=== PATIENT | male | born 1990 | race Caucasian/White ===

== ENCOUNTER 2017-09-13 12:10 | Emergency (ER) | payer MEDICAID ==
--- NOTE | 2017-09-13 12:57 | EDPHY ---
HPI/HX/ROS/PE/MDM Narrative: CHIEF COMPLAINT: Shortness of breath, contsricting throat HISTORY OF PRESENT ILLNESS: The patient is a 27 y/o male complaining of shortness of breath and a constricting throat onset several weeks ago. The symptoms are worse in the morning but tend to alleviate after a hot shower or when placing his arms above his head. His symptoms are aggravated while lying flat. 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 These symptoms are not similar to prior post nasal drip or GERD episodes. Last night his symptoms aggravated and he currently feeling like his upper throat is constricting and in pain. He is able to eat and drink normally. He feels like every breath is difficult to take. Denies history of asthma, pancreatitis, liver, or kidney problems. No fever, chills, chest pain, palpitations, vomiting, diarrhea, urinary complaints, headache, lightheadedness. REVIEW OF SYSTEMS: Aside from elements discussed in the HPI, a comprehensive 10-point review of systems was reviewed and is negative. PAST MEDICAL HISTORY: Left hand fracture, GERD SOCIAL HISTORY: Lives in [place], employed at [employer], uses alcohol and marijuana, denies illicit drug use VITAL SIGNS: Reviewed by me GENERAL: Well-developed, well-nourished, and continually taking deep breaths as he feels like he has to. HEENT: Atraumatic. Eyes: No icterus, no injection. Mouth: moist mucous membranes. Faint white discharge in back of oropharynx No erythema or lesions. Neck: supple with no adenopathy. LUNGS: Right upper lobe wheezes otherwise clear to auscultation, rhonchi or rales. CARDIAC: Regular rate and rhythm, no rubs, murmurs or gallops. ABDOMEN: Soft, nontender, nondistended, bowel sounds normal. BACK: No CVA tenderness. EXTREMITIES: No trauma. No edema. Range of motion is normal throughout. NEURO: Alert and oriented, grossly nonfocal. SKIN: Warm and dry, no rash. PSYCHIATRIC: Normal mentation, no agitation. Portions of this note were transcribed by a medical field representative. I personally performed a history, physical exam, medical decision making, and confirmed accuracy of information the transcribed note. ED Course: The patient is a 27 y/o male presenting with shortness of breath and a constricting throat onset several weeks ago. He is currently continually taking deep breaths as he feels like he has to. On exam he has right upper wheezes and faint white discharge in the back of his oropharynx. He does not have cervical adenopathy. Chest x-ray, soft tissue neck x-ray, and strep screen ordered. Albuterol given. 1417: Patient has a negative strep test, chest x-ray and soft tissue cervical. 1429: Reassessed patient, he is feeling better after the Albuterol, he will receive a prescription for this. I have prescribed him Prilosec as well, his first dose will be given in the emergency department. I discussed the imaging results and referred him to an ENT for an outpatient followup. Return precautions provided; patient is comfortable with this plan. MDM: Diff dx considered included strep pharyngitis, croup, bacterial tracheitis, epiglottis, esophagitits, reactive airways disease, reflux. - Data Points Imaging Results: Soft tissue neck: Impression: Unremarkable soft tissue neck. Dictated By: Obed Jeter MD CXR: IMPRESSION: Normal chest x-ray. Dictated By: Obed Jeter MD Imaging: Discussed imaging studies w/ call center professional Radiologist, I viewed and interpreted images myself Medications Given: Discontinued Medications Albuterol (Proventil Neb) 3 ml IH EDNOW ONE Stop: 09/13/17 13:24 Last Admin: 09/13/17 13:25 Dose: 3 ml General Time Seen by Provider: 09/13/17 12:56 Initial Vital Signs: Initial Vital Signs Temperature (C) 36.5 C 09/13/17 12:16 Heart Rate 72 09/13/17 12:16 Respiratory Rate 16 09/13/17 12:16 Blood Pressure 99/66 L 09/13/17 12:16 O2 Sat (%) 97 09/13/17 12:16 O2 Delivery Mode Room Air Allergies/Adverse Reactions: No Known Allergies Allergy (Unverified 09/13/17 12:16) Home Medications: Medication Instructions Recorded Albuterol [Proventil Inhaler HFA 1 - 2 puffs IH Q4H #1 mdi 09/13/17 (*)] Loratadine [Claritin] 10 mg PO DAILY #30 tablet 09/13/17 Omeprazole 20 mg PO DAILY #30 capsule. 09/13/17 Departure - Departure Disposition: Home, Routine, Self-Care Clinical Impression: Post-nasal drip, Reactive airway disease Condition: Good Instructions: Reactive Airways Disease (ED), Postnasal Drip (DC) Additional Instructions: Take regular doses of Lois or Claritin, these should not make you drowsy and is available over the counter. Do not take a decongestant. Take Prilosec as prescribed. Use the albuterol inhaler as prescribed. Follow up with an ENT in the next week. Mainstay of therapy will be to drink plenty of fluids, control your symptoms with [id number] medications, and get plenty of rest. Return to the emergency department or seek care urgently if you're symptoms are worsening despite the above treatment, if you develop shortness of breath, if you're unable to drink fluids secondary to throat pain or other issues, if you developed, vomiting, diarrhea, or other concerns. Referrals: Evan Shaffer MD [Primary Care Provider] - As per Instructions Doretha Giraldo MD [Medical Doctor] - As per Instructions Prescriptions: Albuterol [Proventil Inhaler HFA (*)] 1 - 2 puffs IH Q4H #1 mdi Loratadine [Claritin] 10 mg PO DAILY #30 tablet Omeprazole 20 mg PO DAILY #30 capsule. Report Scribed for: Lydia Santana Report Scribed by: Melvi Tucker Date of Report: 09/13/17 Time of Report: 12:57
[2017-09-13] MEDS ORDERED: ALBUTEROL 3 ML DEYVIAL IH ONE (13:23)
[2017-09-13 14:54] VITALS: BP 128/73
== END 2017-09-13 14:59 | disposition home or self-care (01) ==
DX: J45.909 Unspecified asthma, uncomplicated (principal); R09.82 Postnasal drip
CPT/HCPCS: J7613